=== PATIENT | male | born 1955 | race Caucasian/White ===

== ENCOUNTER 2022-06-22 07:27 | Outpatient (CLI) | payer OTHER ==
[2022-06-22] MEDS ORDERED: Iopamidol 370 76% 100 ML VIAL ONE (08:17)
== END 2022-06-22 07:28 | disposition home or self-care (01) ==
LOC: MADLAB 07:27 → MADCT 07:28
PROVIDERS: ATTEND Physician Assistant
DX: R10.32 Left lower quadrant pain (principal)
CPT/HCPCS: 36415; 74177; 82565; Q9967

== ENCOUNTER 2025-08-28 08:47 | Outpatient (CLI) | payer OTHER ==
[2025-08-28 09:46] LABS: Cardiac Risk 2.3 (Less than 4.5); Cholesterol 118.0 mg/dl (< 200 Desired); HDL Cholesterol 51.0 mg/dL (>60 Neg Risk); LDL Cholesterol, Calculated 42.0 mg/dL; Triglycerides 124.0 mg/dL (Less than 150)
[2025-08-28 16:39] LABS: Hep C IgG Ab NONREACTIVE S/CO (NonReactive); Hep C Index 0.08 S/CO (0-0.79); PSA-Asymptomatic (SCREENING) 1.498 ng/mL (0-4.0)
== END 2025-08-28 08:48 | disposition home or self-care (01) ==
LOC: MADLAB 08:47
PROVIDERS: ATTEND Family Medicine
DX: Z12.5 Encounter for screening for malignant neoplasm of prostate (principal); Z11.59 Encounter for screening for other viral diseases; E11.65 Type 2 diabetes mellitus with hyperglycemia; E78.2 Mixed hyperlipidemia
CPT/HCPCS: 36415; 80061; 82043; 86803; G0103